=== PATIENT | female | born 1945 | race Caucasian/White ===

== ENCOUNTER 2023-06-02 11:42 | Outpatient (CLI) | payer MEDICARE, OTHER | END 2023-06-02 11:43 | disposition home or self-care (01) | LOC: CSHMAMMO 11:42 | PROVIDERS: ATTEND Family Medicine | DX: Z12.31 Encounter for screening mammogram for malignant neoplasm of breast (principal); Z98.82 Breast implant status | CPT/HCPCS: 77063; 77067 ==

== ENCOUNTER 2023-06-04 11:56 | Outpatient (CLI) | payer MEDICARE, OTHER ==
[~2023-06-04 11:56] MED LIST: Magnevist 469MG/ML 20 ML VIAL ONE
== END 2023-06-04 11:57 | disposition home or self-care (01) ==
LOC: CSHMRI 11:56
PROVIDERS: ATTEND Otolaryngology
DX: H90.3 Sensorineural hearing loss, bilateral (principal); R94.02 Abnormal brain scan
CPT/HCPCS: 70553; 82565

== ENCOUNTER 2023-12-02 12:20 | Outpatient (CLI) | payer MEDICARE, OTHER | END 2023-12-02 12:21 | disposition home or self-care (01) | LOC: CSHMRI 12:20 | PROVIDERS: ATTEND Neurological Surgery | DX: D49.6 Neoplasm of unspecified behavior of brain (principal); R94.02 Abnormal brain scan | CPT/HCPCS: 70553 ==

== ENCOUNTER 2024-10-11 14:10 | Outpatient (CLI) | payer MEDICARE, OTHER | END 2024-10-11 14:11 | disposition home or self-care (01) | LOC: CSHMRI 14:10 | PROVIDERS: ATTEND Neurological Surgery | DX: D49.6 Neoplasm of unspecified behavior of brain (principal) | CPT/HCPCS: 70553; 76376 ==